=== PATIENT | female | born 1970 | race Caucasian/White ===

== ENCOUNTER → 2019-11-02 | Outpatient (CLI) | payer BC, MEDICARE ==
--- NOTE | 2019-11-02 08:17 | XR ---
Cervical spine HISTORY: Neck pain 3 views of the cervical spine No comparisons There is multilevel spondylosis. Some loss of disc height is present at C5-6, C6-7, spondylosis prese nt C4-5 and C5-6 and C6-7. There is straightening of the normal cervical lordosis with near anatomic alignment. Cervical vertebral bodies show preserved height and bone mineralization. There are facet a rthropathy changes present. No fracture or dislocation. IMPRESSION: Degenerative disc disease
== END | disposition home or self-care (01) ==
LOC: RADXRMAIN 07:47
PROVIDERS: ATTEND Internal Medicine
DX: M50.30 Other cervical disc degeneration, unspecified cervical region (principal)
CPT/HCPCS: 72040

== ENCOUNTER → 2021-10-12 | Outpatient (CLI) | payer MEDICARE ==
--- NOTE | 2021-10-12 20:28 | XR ---
EXAMINATION TYPE: XR chest 1V DATE OF EXAM: 10/12/2021 COMPARISON: NONE HISTORY: Right upper chest lesion TECHNIQUE: Single frontal view of the chest is obtained. FINDINGS: Suboptimal x-ray with poor penetration. Grossly unremarkable lungs. No pleural effusion or pneumothor ax. No gross cardiomegaly. No gross aggressive bone lesion. IMPRESSION: No significant abnormality identified. Further CT assessment can be considered if clinically required .
== END | disposition home or self-care (01) ==
LOC: RADXRMAIN 10:25
PROVIDERS: ATTEND Family Medicine
DX: R22.2 Localized swelling, mass and lump, trunk (principal)
CPT/HCPCS: 71045

== ENCOUNTER → 2023-10-17 | Outpatient (CLI) | payer MEDICARE ==
--- NOTE | 2023-10-17 07:38 | MM ---
Reason for Exam: Clinical finding. Last mammogram was performed 11 year(s) and 1 month(s) ago. Patient History: Menarche at age 10. First Full-Term at age 17. Left ovary removed at age 33. Right ovary removed at age 33. Hysterectomy at age 33. Postmenopausal. Maternal grandmother had breast cancer, age 38. Maternal aunt had breast cancer. Mother had breast cancer, age 63. Risk Values: Dyan 5 year model risk: 2.2%. NCI Lifetime model risk: 16.6%. Tissue Density: The breasts are almost entirely fatty. Findings: Analyzed By CAD. No evidence for mass or distortion. Left-sided intramammary lymph node seen. No suspicious microcalcifications. Manage clinically. Overall Assessment: Benign, BI-RAD 2 Management: Screening Mammogram of both breasts in 1 year. . Results were given to the patient verbally at the time of exam. Patient should continue monthly self-breast exams. A clinical breast exam by your physician is recommended on an annual basis. This exam should not preclude additional follow-up of suspicious palpable abnormalities. Note on Dyan scores and lifetime risk: 1. A Dyan score greater than 3% is considered moderate risk. If this is the case, consider specialist referral to assess eligibility for a risk reducing agent. 2. If overall lifetime risk for the development of breast cancer is 20% or higher, the patient may qualify for future screening with alternating mammogram and breast MRI. Electronically signed and approved by: Yimi Salgado M.D. Radiologis
== END | disposition home or self-care (01) ==
LOC: RADMAMWWP 07:02
PROVIDERS: ATTEND Family Medicine
DX: N63.20 Unspecified lump in the left breast, unspecified quadrant (principal); R92.313 Mammographic fatty tissue density, bilateral breasts; Z78.0 Asymptomatic menopausal state; Z80.3 Family history of malignant neoplasm of breast
CPT/HCPCS: 77066; G0279; 77062

== ENCOUNTER → 2024-01-09 | Outpatient (CLI) | payer MEDICARE ==
--- NOTE | 2024-01-09 08:52 | CTL ---
EXAMINATION TYPE: CT Low Dose Lung DATE OF EXAM ORDERED: 01/09/2024 HISTORY: . Lung cancer screening CT DLP: 94.[address] CTDI: 2.4 mGy Automated exposure control for dose reduction was used. SCREENING VISIT: Initial COMPARISON: None TECHNIQUE: Low dose computed tomography scan was performed through the chest at 1 mm thick sections a nd reconstructed images in the coronal plane at [address] DIAGNOSTIC QUALITY: Satisfactory FINDINGS: LUNG NODULES: None. LUNGS: COPD: Severity: None Fibrosis: Severity: None Lymph nodes: None Other findings: Azygous lobe, a normal variant. RIGHT PLEURAL SPACE: Effusion: None Calcification: None Thickening: None Pneumothorax: None LEFT PLEURAL SPACE: Effusion: None Calcification: None Thickening: None Pneumothorax: None HEART: Other: Ascending thoracic aorta at the level the main pulmonary artery measures 3.7 cm. The main pul monary artery at the bifurcation measures 2.8 cm. Heart Size: Normal Coronary calcification: None Pericardial effusion: None OTHER FINDINGS: Upper abdomen: Normal Bony thorax: Normal Supraclavicular region: Normal IMPRESSION: 1. No suspicious changes to suggest primary or metastatic neoplasm. FOLLOW UP CT CHEST RECOMMENDATION: Follow-up low-dose CT chest one year CT LUNG RAD: Lung-Rad 1 Negative [facility], , 01/09/2024 8:49 AM
== END | disposition home or self-care (01) ==
LOC: RADCTMAIN 07:04
PROVIDERS: ATTEND Family Medicine
DX: Z12.2 Encounter for screening for malignant neoplasm of respiratory organs
CPT/HCPCS: 71271